=== PATIENT | female | born 1990 | race Caucasian/White ===

== ENCOUNTER 2018-01-13 14:00 | Emergency (ER) | payer OTHER ==
[~2018-01-13] VITALS: Ht 167.6 cm; Wt 59.0 kg
[~2018-01-13 14:00] MED LIST: CEPH500 PO; FLUO10 PO; IBUP800 PO; NITR100CA PO; Pyridium100 MG PO; Pyridium200 MG PO
[2018-01-13 14:17] LABS: Source, Urine Clean Catch
[2018-01-13 14:20] LABS: Appearance, Urine Hazy (Clear); Bilirubin, Urine Neg (Neg); Blood, Urine Neg (Neg); Color, Urine Yellow (P-Yellow); Glucose Qualitative, Urine Neg (Neg); Ketones, Urine Neg (Neg); Leukocyte Esterase, Urine 1+ (Neg); Nitrite, Urine Pos (Neg); Protein, Urine 1+ (Neg); Urobilinogen, Urine NORM (Normal)
[2018-01-13 14:50] LABS: Bacteria Many /hpf; Red Blood Cells, Urine Not Seen /hpf (0-2); Squamous Epithelial Cells Few /hpf (Few)
[2018-01-13] MEDS ORDERED: Bactrim 400-801 EACH PO (14:50)
[2018-01-13] MEDS ORDERED: Pyridium200 MG PO (14:50)
== END 2018-01-13 15:01 | disposition home or self-care (01) ==
LOC: ER 14:00
PROVIDERS: Emergency Medicine
DX: N39.0 Urinary tract infection, site not specified (principal); G56.01 Carpal tunnel syndrome, right upper limb; F32.9 Major depressive disorder, single episode, unspecified; F17.200 Nicotine dependence, unspecified, uncomplicated; Z79.899 Other long term (current) drug therapy
CPT/HCPCS: 81001; 81025; 87077; 87086; 87186; 99282

== ENCOUNTER 2018-11-04 23:42 | Emergency (ER) | payer OTHER ==
[~2018-11-04] VITALS: Ht 154.9 cm; Wt 54.4 kg
[~2018-11-04 23:42] MED LIST changes: +Bactrim 400-801 EACH PO
[2018-11-05 00:29] LABS: Source, Urine Clean Catch
[2018-11-05 00:32] LABS: Appearance, Urine Cloudy (Clear); Bilirubin, Urine Neg (Neg); Blood, Urine Neg (Neg); Color, Urine Amber (P-Yellow); Glucose Qualitative, Urine Neg (Neg); Ketones, Urine 1+ (Neg); Leukocyte Esterase, Urine 2+ (Neg); Nitrite, Urine Pos (Neg); Protein, Urine 2+ (Neg); Urobilinogen, Urine NORM (Normal)
[2018-11-05 00:38] LABS: Bacteria Many /hpf; Calcium Oxalate Crystals Mod /hpf; Red Blood Cells, Urine 0-2 /hpf (0-2); Squamous Epithelial Cells Mod /hpf (Few)
[2018-11-05 02:32] LABS: BASOPHILS ABSOLUTE AUTO 0.02 K/mm3 (0.00-0.23); BASOPHILS PERCENT AUTO 0 % (0-2); EOSINOPHILS ABSOLUTE AUTO 0.22 K/mm3 (0.00-0.68); EOSINOPHILS PERCENT AUTO 3 % (0-6); Hemoglobin 14.2 g/dL (11.5-16.0); IMMATURE GRAN ABSOLUTE AUTO 0.01 K/mm3 (0.00-0.10); IMMATURE GRAN PERCENT AUTO 0 % (0-1); LYMPHOCYTES ABSOLUTE AUTO 2.94 K/mm3 (0.84-5.20); LYMPHOCYTES PERCENT AUTO 43 % (21-46); MONOCYTES ABSOLUTE AUTO 0.49 K/mm3 (0.16-1.47); MONOCYTES PERCENT AUTO 7 % (4-13); Mean Corpuscular HGB 29.2 pg (26.0-34.0); Mean Corpuscular HGB Conc 32.3 g/dL (31.5-36.5); Mean Corpuscular Volume 90 fL (80-100); Mean Platelet Volume 10.3 fL (9.1-12.4); NEUTROPHILS ABSOLUTE AUTO 3.16 K/mm3 (1.96-9.15); NEUTROPHILS PERCENT AUTO 46 % (41-73); Platelet Count 258 K/mm3 (150-400); RDW Coefficient Variation 12.1 % (11.7-14.2); Red Blood Cell Count 4.87 M/mm3 (3.80-5.20); White Blood Cell Count 6.84 K/mm3 (4.00-11.30)
[2018-11-05 02:49] LABS: Alanine Aminotransfer (ALT/SGP 26 U/L (12-78); Albumin, Blood 4.1 g/dL (3.4-5.0); Albumin/Globulin Ratio 1.3 (0.8-1.8); Alk Phos 76 U/L (50-136); Anion Gap 7 mmol/L (6-16); Aspartate Aminotrans (AST/SGOT 15 U/L (12-37); Bilirubin, Total 0.2 mg/dL (0.1-1.0); Blood Urea Nitrogen 16 mg/dL (8-24); Bun/Creatinine Ratio 24.5 (12.0-20.0); CO2, Blood 27 mmol/L (21-32); Calcium, Blood 8.5 mg/dL (8.5-10.1); Chloride, Blood 108 mmol/L (98-108); Creatinine, Blood 0.65 mg/dL (0.40-1.00); Globulin, Blood 3.2 g/dL (2.2-4.0); Glomerular Filtration Rate >60 (60-); Glucose, Blood 101 mg/dL (70-99); Potassium, Blood 3.3 mmol/L (3.5-5.5); Sodium, Blood 142 mmol/L (136-145); Total Protein, Blood 7.3 g/dL (6.4-8.2)
[2018-11-05] MEDS ORDERED: CEPH500 PO (02:55)
== END 2018-11-05 03:07 | disposition home or self-care (01) ==
LOC: ER 23:42
PROVIDERS: Physician Assistant
DX: N89.8 Other specified noninflammatory disorders of vagina (principal); N39.0 Urinary tract infection, site not specified; F17.200 Nicotine dependence, unspecified, uncomplicated
CPT/HCPCS: 36415; 80053; 81001; 81025; 85025; 87077; 87086; 87186; 99283

== ENCOUNTER 2018-11-23 23:04 | Emergency (ER) | payer OTHER | END 2018-11-23 23:22 | disposition left against medical advice (07) | LOC: ER 23:04 | DX: Z53.21 Procedure and treatment not carried out due to patient leaving prior to being seen by health care provider (principal); M54.9 Dorsalgia, unspecified ==

== ENCOUNTER 2018-11-30 22:26 | Emergency (ER) | payer OTHER ==
[~2018-11-30] VITALS: Ht 154.9 cm; Wt 53.5 kg
[2018-11-30] MEDS ORDERED: Augmentin 875-1 EACH PO (23:42)
== END 2018-12-01 00:19 | disposition home or self-care (01) ==
LOC: ER 22:26
DX: S51.851A Open bite of right forearm, initial encounter (principal); F17.200 Nicotine dependence, unspecified, uncomplicated; W54.0XXA Bitten by dog, initial encounter
CPT/HCPCS: 73090; 90471; 90714; 99283-25

== ENCOUNTER → 2019-08-20 | Outpatient (CLI) | payer OTHER ==
[~2019-08-20] MED LIST changes: +Augmentin 875-1 EACH PO; +EPIPEN 2-P0.3 MG/0.3 IM; +Prednisone20 MG PO
[2019-08-30 07:09] LABS: CHLAMYDIA TRACHOMATIS, NAA Negative (Negative); NEISSERIA GONORRHOEAE, NAA Negative (Negative)
== END ==
LOC: LAB 16:10 → LAB SHORT 16:10
PROVIDERS: Obstetrics & Gynecology
DX: Z01.419 Encounter for gynecological examination (general) (routine) without abnormal findings (principal)
CPT/HCPCS: 87491; 87591; G0123

== ENCOUNTER 2020-03-30 16:03 | Emergency (ER) | payer OTHER ==
[~2020-03-30] VITALS: Ht 152.4 cm; Wt 54.4 kg
[~2020-03-30 16:03] MED LIST changes: +Cleocin HCl300 MG PO
[2020-03-30] MEDS ORDERED: AMOCLA875 PO (16:21)
== END 2020-03-30 17:22 | disposition home or self-care (01) ==
LOC: ER 16:03
DX: S51.852A Open bite of left forearm, initial encounter (principal); S51.851A Open bite of right forearm, initial encounter; F17.210 Nicotine dependence, cigarettes, uncomplicated; Z88.1 Allergy status to other antibiotic agents; W54.0XXA Bitten by dog, initial encounter
CPT/HCPCS: 12002; 99283-25

== ENCOUNTER → 2020-12-06 | Outpatient (CLI) | payer OTHER ==
[~2020-12-06] MED LIST changes: +AMOCLA875 PO
[2020-12-06 18:21] LABS: U Amphetamine Screen DETECTED; U Barbituate Screen Not Detected; U Benzodiazapine Screen Not Detected; U Cannabinoids Screen Not Detected; U Cocaine Screen Not Detected; U Methadone Screen Not Detected; U Methamphetamine Screen DETECTED; U Opiates Screen Not Detected; U Phencyclidine Screen Not Detected
[2020-12-06 18:22] LABS: U Buprenorphine Screen Not Detected; U Oxycodone Screen Not Detected; U Propoxyphene Screen Not Detected
== END | disposition home or self-care (01) ==
LOC: LAB SHORT 16:37 → LAB 16:37
PROVIDERS: Obstetrics & Gynecology
DX: O28.8 Other abnormal findings on antenatal screening of mother (principal)
CPT/HCPCS: G0480

== ENCOUNTER → 2020-12-30 | Outpatient (CLI) | payer OTHER ==
[2020-12-30 12:51] LABS: U Barbituate Screen Not Detected
[2020-12-30 12:52] LABS: U Benzodiazapine Screen Not Detected; U Cannabinoids Screen Not Detected; U Cocaine Screen Not Detected; U Methadone Screen Not Detected; U Opiates Screen Not Detected; U Oxycodone Screen Not Detected; U Phencyclidine Screen Not Detected; U Propoxyphene Screen Not Detected
[2020-12-30 12:54] LABS: U Amphetamine Screen DETECTED; U Methamphetamine Screen DETECTED
[2020-12-30 12:55] LABS: U Buprenorphine Screen DETECTED
== END | disposition home or self-care (01) ==
LOC: LAB SHORT 11:20 → LAB 11:20
PROVIDERS: Obstetrics & Gynecology
DX: Z34.82 Encounter for supervision of other normal pregnancy, second trimester (principal)

== ENCOUNTER → 2021-01-25 | Outpatient (CLI) | payer OTHER ==
[2021-01-25 19:04] LABS: U Amphetamine Screen Not Detected; U Barbituate Screen Not Detected; U Benzodiazapine Screen Not Detected; U Buprenorphine Screen DETECTED; U Cannabinoids Screen Not Detected; U Cocaine Screen Not Detected; U Methadone Screen Not Detected; U Methamphetamine Screen Not Detected; U Opiates Screen Not Detected; U Oxycodone Screen Not Detected; U Phencyclidine Screen Not Detected; U Propoxyphene Screen Not Detected
== END | disposition home or self-care (01) ==
LOC: LAB SHORT 17:22 → LAB 17:22
PROVIDERS: Obstetrics & Gynecology
DX: Z34.83 Encounter for supervision of other normal pregnancy, third trimester (principal)

== ENCOUNTER → 2021-05-10 | Outpatient (CLI) | payer OTHER | LOC: LAB SHORT 17:26 | DX: O09.93 Supervision of high risk pregnancy, unspecified, third trimester (principal); Z3A.00 Weeks of gestation of pregnancy not specified | CPT/HCPCS: 87081; 87150 ==

== ENCOUNTER 2021-05-29 18:08 | Inpatient (IN) | payer OTHER ==
[~2021-05-29] VITALS: Ht 154.9 cm; Wt 62.3 kg
[2021-05-29] MEDS ORDERED: BUPRENORPHIN-N1 EAC1 SL (18:55)
[2021-05-29] MEDS ORDERED: PRENATAL TABLE1 EAC2 (18:55)
[2021-05-29 19:08] LABS: U Amphetamine Screen Not Detected; U Barbituate Screen Not Detected; U Benzodiazapine Screen Not Detected; U Buprenorphine Screen DETECTED; U Cannabinoids Screen Not Detected; U Cocaine Screen Not Detected; U Methadone Screen Not Detected; U Methamphetamine Screen Not Detected; U Opiates Screen Not Detected; U Oxycodone Screen Not Detected; U Phencyclidine Screen Not Detected; U Propoxyphene Screen Not Detected
[2021-05-29 19:29] LABS: Influenza A, PCR NEGATIVE (NEGATIVE); Influenza B, PCR NEGATIVE (NEGATIVE); Resp Syncytial Virus, PCR NEGATIVE (NEGATIVE); SARS-Cov-2 (COVID-19) PCR, MMC NEGATIVE (NEGATIVE)
[2021-05-29 19:53] LABS: BASOPHILS ABSOLUTE AUTO 0.03 K/mm3 (0.00-0.23); BASOPHILS PERCENT AUTO 0 % (0-2); EOSINOPHILS PERCENT AUTO 1 % (0-6); Hematocrit 40.9 % (33.0-51.0); Hemoglobin 13.8 g/dL (11.5-16.0); IMMATURE GRAN ABSOLUTE AUTO 0.15 K/mm3 (0.00-0.10); IMMATURE GRAN PERCENT AUTO 1 % (0-1); LYMPHOCYTES PERCENT AUTO 9 % (21-46); MONOCYTES ABSOLUTE AUTO 0.94 K/mm3 (0.16-1.47); MONOCYTES PERCENT AUTO 5 % (4-13); Mean Corpuscular HGB 29.9 pg (26.0-34.0); Mean Corpuscular HGB Conc 33.7 g/dL (31.5-36.5); Mean Corpuscular Volume 89 fL (80-100); Mean Platelet Volume 11.8 fL (9.1-12.4); NEUTROPHILS PERCENT AUTO 85 % (41-73); Platelet Count 215 K/mm3 (150-400); RDW Coefficient Variation 13.4 % (11.7-14.2); RDW Standard Deviation 43.4 fL (35.1-46.3); Red Blood Cell Count 4.62 M/mm3 (3.80-5.20); White Blood Cell Count 19.32 K/mm3 (4.00-11.30)
--- NOTE | 2021-05-29 19:53 | NUR ---
18G TO LEFT UPPER ARM WITH ULTRA SOUND. LABS DRAWN AND FLUSHED WITHOUT DIFFICULTY
--- NOTE | 2021-05-30 04:47 | NUR ---
Patient walked to bathroom with nurse & tech.
[2021-05-31] MEDS ORDERED: IBU800 M1 PO (07:44)
[2021-05-31] MEDS ORDERED: BUPRENORPHINE HC2 M1 SL (07:45)
--- NOTE | 2021-05-31 19:19 | NUR ---
Printed dc instructions reviewed w/pt. Questions answered to her satisfaction. Working on paperwork for d/c.
== END 2021-05-31 22:00 | disposition home or self-care (01) | DRG 806 ==
LOC: OBS 18:08 → BC 18:29
PROVIDERS: ADMIT Obstetrics & Gynecology
PROC: 10E0XZZ Delivery of Products of Conception, External Approach (ICD-10-PCS; principal; 2021-05-30)
PROC: 3E0R3BZ Introduction of Anesthetic Agent into Spinal Canal, Percutaneous Approach (ICD-10-PCS; 2021-05-30)
PROC: 00HU33Z Insertion of Infusion Device into Spinal Canal, Percutaneous Approach (ICD-10-PCS; 2021-05-30)
DX: O99.824 Streptococcus B carrier state complicating childbirth (principal); F11.20 Opioid dependence, uncomplicated; Z37.0 Single live birth; Z3A.38 38 weeks gestation of pregnancy; Z20.822 Contact with and (suspected) exposure to COVID-19; O99.324 Drug use complicating childbirth; O99.334 Smoking (tobacco) complicating childbirth; O71.82 Other specified trauma to perineum and vulva; F17.210 Nicotine dependence, cigarettes, uncomplicated; Z88.1 Allergy status to other antibiotic agents; Z28.21 Immunization not carried out because of patient refusal; Z79.899 Other long term (current) drug therapy
CPT/HCPCS: 0241U; 36415; 51702; 85025; 86803; 86850; 86900; 86901; A9270; J0290; J1885; J2001; J2210; J2590; J3010; J7120

== ENCOUNTER → 2022-06-24 | Outpatient (CLI) | payer OTHER ==
[~2022-06-24] MED LIST changes: +BUPRENORPHIN-N1 EAC1 SL; +BUPRENORPHINE HC2 M1 SL; +IBU800 M1 PO; +PRENATAL TABLE1 EAC2
== END | disposition home or self-care (01) ==
LOC: LAB 17:08 → LAB SHORT 17:08
DX: R82.79 Other abnormal findings on microbiological examination of urine (principal)
CPT/HCPCS: 87077; 87086; 87186

== ENCOUNTER 2023-01-02 02:07 | Emergency (ER) | payer OTHER ==
[~2023-01-02] VITALS: Ht 154.9 cm; Wt 58.3 kg
[2023-01-02 02:23] VITALS: BP 128/63
== END 2023-01-02 04:21 | disposition home or self-care (01) ==
LOC: ER 02:07
DX: O99.613 Diseases of the digestive system complicating pregnancy, third trimester (principal); K59.00 Constipation, unspecified; O99.333 Smoking (tobacco) complicating pregnancy, third trimester; F17.210 Nicotine dependence, cigarettes, uncomplicated; Z88.1 Allergy status to other antibiotic agents; Z79.899 Other long term (current) drug therapy
CPT/HCPCS: 99283; A9270

== ENCOUNTER 2023-01-08 14:54 | Inpatient (IN) | payer OTHER ==
[2023-01-08] VITALS (12 sets, daily range): BP systolic 103–179; BP diastolic 53–82
--- NOTE | 2023-01-08 20:40 | NUR ---
WHILE THIS RN WAS IN ROOM TO ROUND/OFFER FOOD FOR PT THE FOB WAS IN THE ROOM ALONG WITH A 1-2 YEAR OLD BOY. THE BOY WAS RUNNING AROUND ROOM, YELLING,CRYING APPEARING TO BE OVERLY TIRED. THE FOB GRABBED HIM VERY ABRUPTLY AND STARTED STERNLY TALKING TO HIM TELLING HIM TO "SHUT HIS MOUTH" AND STATED " ID ONT CARE IF YOURE TIRED YOU NEED TO KNOCK IT OFF." THEN THE FOB AGGRESSIVELY LAID HIM DOWN ON THE DAD BED. THE CHILD WAS CRYING EVEN MORE AT THIS POINT. THE FOB STARTED TO PAT THE YOUNG BOY'S STOMACH ROUGHLY. THE BOY CONTINUED TO CRY. THE RN STPEED OUT OF THE ROOM SHE HEARD THE PATS GETTING LOUDER AND THEN THE FOB AND PT STARTED TO ARGUE QUITELY.
[2023-01-09 04:58] VITALS: BP 112/58
[2023-01-09 07:36] VITALS: BP 124/73
--- NOTE | 2023-01-09 08:40 | NUR ---
KASHMIR SPOKE WITH DR OLMSTEAD, AND WAS AGREEABLE TO CBC AND UTOX. FILLED OUT PAPERWORK AND SIGNED FOR URINE. TRIED TO PEE AND WAS UNABLE TO. KASHMIR SAID SHE WOULD DRINK WATER AND THEN TELL ME WHEN SHE COULD PEE AGAIN. DID AGREE AND TAKE HER BUPRENOPRHINE THIS AM. I WENT BACK 30 MINUTES LATER AT 0910 AND KASHMIR STILL HAS NOT DRANK MORE WATER AND STATES SHE WILL LET ME KNOW WHEN SHES ABLE TO PEE.
[2023-01-09 08:59] LABS: Hematocrit 28.8 % (33.0-51.0); Hemoglobin 9.9 g/dL (11.5-16.0); Mean Corpuscular HGB 30.1 pg (26.0-34.0); Mean Corpuscular HGB Conc 34.4 g/dL (31.5-36.5); Mean Corpuscular Volume 88 fL (80-100); Mean Platelet Volume 11.1 fL (9.1-12.4); Platelet Count 227 K/mm3 (150-400); RDW Coefficient Variation 12.3 % (11.7-14.2); RDW Standard Deviation 39.4 fL (35.1-46.3); Red Blood Cell Count 3.29 M/mm3 (3.80-5.20); White Blood Cell Count 19.63 K/mm3 (4.00-11.30)
--- NOTE | 2023-01-09 10:40 | NUR ---
PT WENT TO GO GET COFFEE ABOUT 15 MINUTES AGO. OFF UNIT.
--- NOTE | 2023-01-09 11:06 | NUR ---
pt back to room
[2023-01-09 11:47] VITALS: BP 144/70
[2023-01-09 13:52] VITALS: BP 150/83
[2023-01-09 14:08] VITALS: BP 127/74
--- NOTE | 2023-01-09 14:12 | NUR ---
pt agreeable for utox screen and can pee at this time. utox sent.
[2023-01-09 14:36] LABS: U Amphetamine Screen DETECTED; U Barbituate Screen Not Detected; U Benzodiazapine Screen Not Detected; U Buprenorphine Screen DETECTED; U Cannabinoids Screen Not Detected; U Cocaine Screen Not Detected; U Methadone Screen Not Detected; U Methamphetamine Screen DETECTED; U Opiates Screen Not Detected; U Oxycodone Screen Not Detected; U Phencyclidine Screen Not Detected; U Propoxyphene Screen Not Detected
--- NOTE | 2023-01-09 14:56 | NUR ---
I CALLED DR OLMSTEAD BACK REGARDING SLIGHTLY ELEVATED BPS. NO ANSWER. I THEN CALLED DR SITA SALAZAR AND NOTIFIED OF HER BPS. ([phone]) HOWEVER IT COMING DOWN AFTER HER BEING IN BED FOR 15 MINUTES. HER ELEVATED BPS WERE RIGHT AFTER SHE WENT OUTSIDE AND SMOKED A CIGARETTE AND HER 2 YEAR OLD SON CAME IN AND SPILLED AN ENTIRE WATER CUP OF ICE AND WATER ALL OVER HER ROOM IN WHICH THE FATHER OF BABY DID NOT HELP CLEAN UP. HER SON WAS JUMPING ALL OVER THE ROOM AND SCREAMING. PER DR SALAZAR, SHE WOULD LIKE TO GET A CMP AND HAVE PATIENT STAY OVER NIGHT SHE IS NOT POSITIVE IF THE ELEVATED BPS ARE CHRONIC OR GESTATION HTN OR CIAGARETTE/STRESS RELATED. DR SALAZAR AWARE THAT KASHMIR AGREED TO A UTOX AND IT CAME BACK POSITIVE FOR METH, AMPHETAMINES AND BUP. IF PATIENT NOT AGREEABLE TO THIS DR SALAZAR STATES PATIENT NEEDS TO SIGN AN AMA FORM TO [place].
--- NOTE | 2023-01-09 15:13 | NUR ---
dr cabello called back and saw last bp, patient is ok to dc home.
--- NOTE | 2023-01-09 15:22 | NUR ---
patient given written and verbal dc instructions. questions answered. declines making ppfu at this time at [facility] as she is discharging and going straight to [place] to see her baby. she will call [facility] and make ppfu there and call [facility] to make one after she knows what it looks like in [place] and how long she will be there for. She will be staying at the [facility]. discharged with boyfrienbharat briones and her son eliezer at side. cmp drawn before she left. dr prater aware that she went to [place] prior to receiving the results back. discharge instructions reviewed at length and patient aware of when she needs to call provider or go to ER for evaluation.
[2023-01-09 16:37] LABS: Alanine Aminotransfer (ALT/SGP 34 U/L (12-78); Albumin, Blood 2.2 g/dL (3.4-5.0); Albumin/Globulin Ratio 0.6 (0.8-1.8); Alk Phos 145 U/L (50-136); Anion Gap 2 mmol/L (6-16); Aspartate Aminotrans (AST/SGOT 43 U/L (12-37); Bilirubin, Total <0.1 mg/dL (0.1-1.0); Blood Urea Nitrogen 11 mg/dL (8-24); Bun/Creatinine Ratio 16.6 (12.0-20.0); CO2, Blood 30 mmol/L (21-32); Calcium, Blood 8.6 mg/dL (8.5-10.1); Chloride, Blood 104 mmol/L (98-108); Creatinine, Blood 0.66 mg/dL (0.40-1.00); Globulin, Blood 3.5 g/dL (2.2-4.0); Glomerular Filtration Rate 120 (60-); Glucose, Blood 124 mg/dL (70-99); Potassium, Blood 3.8 mmol/L (3.5-5.5); Sodium, Blood 136 mmol/L (136-145); Total Protein, Blood 5.7 g/dL (6.4-8.2)
== END 2023-01-09 15:20 | disposition home or self-care (01) | DRG 806 ==
LOC: OBS 14:54 → BC 14:54 → OBS 15:23 → BC 20:50
PROVIDERS: Advanced Practice Midwife; Family Medicine; ADMIT Obstetrics & Gynecology
PROC: 10E0XZZ Delivery of Products of Conception, External Approach (ICD-10-PCS; principal; 2023-01-08)
DX: O60.23X0 Term delivery with preterm labor, third trimester, not applicable or unspecified (principal); F11.20 Opioid dependence, uncomplicated; Z37.0 Single live birth; O99.344 Other mental disorders complicating childbirth; F41.3 Other mixed anxiety disorders; O99.334 Smoking (tobacco) complicating childbirth; F17.210 Nicotine dependence, cigarettes, uncomplicated; Z3A.32 32 weeks gestation of pregnancy; Z88.1 Allergy status to other antibiotic agents; Z79.899 Other long term (current) drug therapy; Z98.890 Other specified postprocedural states; Z67.10 Type A blood, Rh positive
CPT/HCPCS: 36415; 80053; 85027; A9270; J0702; J1885; J2590; J3370